=== PATIENT | female | born 1990 | race Caucasian/White ===

== ENCOUNTER 2016-09-25 14:59 | Emergency (ER) | payer MEDICAID, OTHER ==
--- NOTE | 2016-09-25 15:29 | ED Physician Documentation ---
Eye Problem - HISTORIAN Historian: patient - HPI Stated Complaint: left eye redness Chief Complaint: Eye Problems Additional Information: conjunctivitis lt eye w/crussting stuck shut this am - cousin has similar both eyes Onset: days ago (2) Associated symptoms: burining, itching, redness, matting, sensitivity to light Location: left eye Severity: moderate Apparent Injury: no Context: denies: foreign body, direct trauma Other Injuries: denies: neck, head, back - ROS CONST: no problems MS/SKIN/LYMPH: denies: weakness, numbness, neck pain, back pain CVS/RESP: none EYES/ENT: problems with vision (slight blur lt eye) GI/: denies: problems urinating NEURO: denies: headache - PAST HX Past History: other (gerd) Allergies/Adverse Reactions: Allergies Allergy/AdvReac Type Severity Reaction Status Date / Time iodine AdvReac Hives Verified 09/25/16 15:08 Home Medications: Ambulatory Orders Medication Instructions Recorded Ranitidine HCl [Zantac] 150 mg PO BID 12/16/15 - SOCIAL HX Smoking History: greater than 1 pack/day Alcohol Use: occasionally Drug Use: none - FAMILY HX Family History: other (cousin w/same) - VITAL SIGNS Vital Signs: Vital Signs Temp Pulse Resp BP Pulse Ox 98.2 F 93 H 18 148/88 98 09/25/16 15:09 09/25/16 15:09 09/25/16 15:09 09/25/16 15:09 09/25/16 15:09 - REVIEWED ASSESSMENTS Nursing Assessment Reviewed: Yes Vitals Reviewed: Yes Eye Problem Physical Exam - Physical Exam General Appearance: mild distress Eyelids: edema (L), everted for exam (L), erythema (L) Conjunctiva and Sclera: injected (L), foreign material (L). No: subconjunctival hemorrhage (L) EOM: intact Pupils: equal Anterior Chambers: nml inspection Head/ENT: nml inspection Skin: nml color Neck/Back: nml inspection Respiratory: no resp distress, breath sounds normal CVS: reg rate & rhythm, heart sounds normal Abdomen: non-tender Neuro/Psych: oriented x3, mood/affect nml Discharge Clincal Impression: conjunctivitis-pineye Referrals: Primary Doctor,No [Primary Care Provider] - 2 Days Home Medications: Ambulatory Orders Ranitidine HCl [Zantac] 150 mg PO BID 12/16/15 Condition: Good Disposition: 01 HOME, SELF-CARE Decision to Admit: NO Decision Time: 15:29
[2016-09-25 15:55] VITALS: BP 132/79
== END 2016-09-25 15:39 | disposition home or self-care (01) ==
LOC: ED 14:59
DX: H10.022 Other mucopurulent conjunctivitis, left eye (principal)
CPT/HCPCS: 99283

== ENCOUNTER 2017-08-27 18:08 | Emergency (ER) | payer MEDICAID, OTHER ==
[2017-08-27 19:41] LABS: BASOPHILS % 0.3 (0.0-1.5); EOSINOPHILS % 2.1 % (0.0-6.8); MEAN CORPUSCULAR HEMOGLOBIN 28.4 pg (28.0-34.0); MEAN CORPUSCULAR VOLUME 90.5 fl (80.0-100.0); MONOCYTES % 4.6 % (0.0-11.0); NEUTROPHILS # 4.2 # k/uL (1.4-7.7)
[2017-08-27 19:42] LABS: APPEARANCE,URINE Clear (CLEAR); COLOR,URINE Yellow (YELLOW); OCCULT BLOOD,URINE 3+ (NEGATIVE); PH URINE 5.5 (5.0 - 8.0); UROBILINOGEN URINE 0.2 Eu (0.2-1.0)
--- NOTE | 2017-08-27 19:43 | ED Physician Documentation ---
Female Urogenital Problems - HISTORIAN Historian: patient, parent - HPI Stated Complaint: Vag bleeding x 2wks Chief Complaint: Female Urogenital Problems Additional Information: vaghinal bleeding since iud mirena 2-=. pt wants it out DR [place]O [facility] [place] Onset: other (int since 06-20-17) Severity: mild - Vaginal Bleeding Compared to Menstrual Periods: passing clots Sexual History: active Contraceptive: IUD - Associated Symptoms Urinary Symptoms: none - ROS CONST: none GI/: denies: nausea, vomiting, decreased appetite CVS/RESP: none. denies: chest pain, shortness of breath, cough NEURO/PSYCH: none MS/SKIN/LYMPH: none - PAST HX Past History: none Surgeries/Procedures: none Immunizations: UTD Allergies/Adverse Reactions: Allergies Allergy/AdvReac Type Severity Reaction Status Date / Time iodine AdvReac Hives Verified 08/27/17 18:54 Home Medications: Ambulatory Orders Medication Instructions Recorded NK [NK] 08/27/17 - SOCIAL HX Smoking History: cigarettes Alcohol Use: none Drug Use: none - FAMILY HX Family History: none - VITAL SIGNS Vital Signs: Vital Signs Temp Pulse Resp BP Pulse Ox 97.4 F L 94 H 16 115/85 98 08/27/17 18:09 08/27/17 18:09 08/27/17 18:09 08/27/17 18:09 08/27/17 18:09 - REVIEWED ASSESSMENTS Nursing Assessment Reviewed: Yes Vitals Reviewed: Yes Progress - Results/Orders Results/Orders: Screeing lab and vitals all ok. Called DR ARCEO-spoke w/ DR ESTRADA who rec have pt contact DR ARCEO in the am for furthur controll planning. Therefore will not take out mirena tonite. this agreeable w/pt. ED Results Lab/Radiology - Orders Orders: ED Orders Category Date Time Status CBC/PLATELET/DIFF Routine Lab 08/27/17 19:34 Received CMP Routine Lab 08/27/17 19:34 Received URINALYSIS Routine Lab 08/27/17 19:34 Received Female Urogenital Problems - EXAM General Appearance: mild distress EENT: eye inspection normal Neck: nml inspection Respiratory: no resp. distress, breath sounds nml CVS: reg rate & rhythm, heart sounds normal Abdomen: soft, non-tender Back: non-tender Skin: color nml, no rash, warm,dry. No: cyanosis, diaphoresis, pallor Extremities: non-tender Neuro: oriented X3 Discharge Clincal Impression: vaginal spotting/bleeding w/ BC device Referrals: Sari Coronel MD [Primary Care Provider] - 2 Days Comments: see note will have pt contact DR ARCEO in the am Condition: Good Disposition: 01 HOME, SELF-CARE Decision to Admit: NO Decision Time: 21:01
[2017-08-27 19:52] LABS: eGFR (African) > 60; eGFR (Non-African) > 60
[2017-08-27] MEDS ORDERED: 0.9 % SODIUM CHLORIDE 1,000 ML IV SCH (21:00)
[2017-08-27 23:51] VITALS: BP 121/60
== END 2017-08-27 21:10 | disposition home or self-care (01) ==
LOC: ED 18:08
DX: N93.9 Abnormal uterine and vaginal bleeding, unspecified (principal); Z97.5 Presence of (intrauterine) contraceptive device
CPT/HCPCS: 80053; 81002; 85025; 99283